=== PATIENT | female | born 1970 | race Caucasian/White ===

== ENCOUNTER 2018-08-06 11:19 | Emergency (ER) | payer OTHER ==
[~2018-08-06] VITALS: Ht 157.5 cm; Wt 54.5 kg
[2018-08-06 11:25] VITALS: TEMP 98.8
[2018-08-06] MEDS ORDERED: PAXIL 30MG30 MG PO (13:31)
[2018-08-06] MEDS ORDERED: ATARAX 25MG25 MG/TAB PO (13:31)
[2018-08-06] MEDS ORDERED: PRIALT IT (13:32)
[2018-08-06] MEDS ORDERED: DESYREL 100MG100 MG PO (13:33)
[2018-08-06 15:38] VITALS: BP 125/78; PULSE 85
== END 2018-08-06 15:39 | disposition home or self-care (01) ==
LOC: COL.ER 11:19
DX: S62.624A Displaced fracture of middle phalanx of right ring finger, initial encounter for closed fracture (principal); W23.0XXA Caught, crushed, jammed, or pinched between moving objects, initial encounter; Y92.009 Unspecified place in unspecified non-institutional (private) residence as the place of occurrence of the external cause